=== PATIENT | female | born 1965 ===

== ENCOUNTER 2019-08-29 08:19 | Inpatient (IN) | payer OTHER ==
[~2019-08-29] VITALS: Ht 154.9 cm; Wt 77.6 kg
[2019-08-29] MEDS ORDERED: COZAAR25 MG PO (08:52)
== END 2019-09-06 11:41 | disposition home or self-care (01) | DRG 743 ==
LOC: O/R 11:45 → OB/GYN 09-05 05:19 → O/R 09-05 05:19 → OB/GYN 09-05 10:56 → SURH 09-05 11:45 → OB/GYN 09-06 11:41 → SURH 09-08 11:45
PROVIDERS: ADMIT Obstetrics & Gynecology Gynecology
PROC: 0UT74ZZ Resection of Bilateral Fallopian Tubes, Percutaneous Endoscopic Approach (ICD-10-PCS; 2019-09-05)
PROC: 0UT94ZZ Resection of Uterus, Percutaneous Endoscopic Approach (ICD-10-PCS; principal; 2019-09-05 15:00)
DX: D25.1 Intramural leiomyoma of uterus (principal); N93.8 Other specified abnormal uterine and vaginal bleeding; N72 Inflammatory disease of cervix uteri; N80.0 Endometriosis of uterus

== ENCOUNTER 2019-09-25 23:18 | Inpatient (IN) | payer OTHER ==
[~2019-09-25] VITALS: Ht 154.9 cm; Wt 74.8 kg
[~2019-09-25 23:18] MED LIST: COZAAR25 MG PO
--- NOTE | 2019-09-25 23:23 | NUR ---
SERECIBE PTE ALERTA Y ORIENTADA PORTRES EN, AMBULANCIA, TRANSFERIDA DEL [facility]ITAL DR. LESVIA RECINOS RIOLETI. PTE INDICA AMANDA SIDO OPERADA POR DR. IGOR BOSWELL, QUIEN LE REALIZO WILLIAMS HISTERECTOMIA EL CLARE 2 DE DICIEMBRE Y QUE PRESENTA SANGR[place] VAGINAL DESDE LAS 7:00PM. PTEES PRESENTADA A DR. MILLER POR PERSONAL PARAMEDICO.
--- NOTE | 2019-09-25 23:43 | NUR ---
MISS GONZALEZORIENTA AL PACIENTE SOBRE TRATAMIENTO MEDICO EL CUAL REFIERE ENTENDER, SE REALIZA MUESTRA DE KANDICE DE FORMA ASEPTICA Y SE ADMINISTRA MEDICAMENTO [place] ORDEN MEDICA. LA PACIENTE TOLERA INTERVENCION DEL RN.
--- NOTE | 2019-09-26 00:13 | NUR ---
SE NOTIFICAA ROMERO DE BANCO DESANGRE PARTUBOPILOTOPARA 2 [facility]ESDE [facility] QUE[facility] EN HOLD.
[2019-09-27] MEDS ORDERED: AUGMENTIN XR 11 EACH PO (07:31)
[2019-09-27] MEDS ORDERED: MAXFE CAPLET1 EACH PO (07:31)
== END 2019-09-27 09:19 | disposition home or self-care (01) | DRG 749 ==
LOC: ER 23:18 → SEC-K 09-26 03:39 → OB/GYN 09-26 06:08
PROVIDERS: ADMIT Obstetrics & Gynecology Gynecology
PROC: BW4GZZZ Ultrasonography of Pelvic Region (ICD-10-PCS; 2019-09-26)
PROC: 0W3R7ZZ Control Bleeding in Genitourinary Tract, Via Natural or Artificial Opening (ICD-10-PCS; principal; 2019-09-26 07:00)
DX: N93.8 Other specified abnormal uterine and vaginal bleeding (principal); D62 Acute posthemorrhagic anemia; Z90.710 Acquired absence of both cervix and uterus